=== PATIENT | female | born 1960 | race Caucasian/White ===

== ENCOUNTER 2020-06-04 08:50 | Observation (INO) | payer BC ==
[~2020-06-04] VITALS: Ht 162.5 cm; Wt 66.9 kg
[2020-06-04 09:02] VITALS: BP 162/99
[2020-06-04 09:22] LABS: BASO % 0.6 % (0.0-1.0); EOS # 0.1 10*3/uL (0.0-0.4); EOS % 2.1 % (1.0-4.0); HEMATOCRIT 40.5 % (37.0-47.0); LYMPH # 1.3 10*3/uL (1.3-4.4); LYMPH % 19.9 % (27.0-41.0); MEAN CELL VOLUME 93.8 fl (81.0-99.0); MEAN CORPUSCULAR HGB 30.1 pg (27.0-31.0); MEAN CORPUSCULAR HGB CONC 32.1 g/dl (33.0-37.0); MONO # 0.5 10*3/uL (0.1-1.0); MONO % 7.1 % (3.0-9.0); NEUT # 4.7 10*3/uL (2.3-7.9); NEUT % 70.2 % (47.0-73.0); PLATELET COUNT AUTOMATED 275 10*3/uL (130-400); RED BLOOD COUNT 4.32 10*6/uL (4.10-5.10); RED CELL DISTRI WIDTH 12.6 % (0-14.5); WHITE BLOOD COUNT 6.7 10*3/uL (4.8-10.8)
[2020-06-04 09:36] LABS: ACT PARTIAL THROMBO TIME 28.8 SECONDS (20.0-32.1)
[2020-06-04 09:39] LABS: ALBUMIN 3.9 gm/dl (3.1-4.5); ALKALINE PHOSPHATASE 124 U/L (45-117); BUN 11 mg/dl (7-24); CHLORIDE 107 mmol/L (98-107); CREATININE 0.57 mg/dL (0.55-1.02); LIPASE 189 U/L (73-393); POTASSIUM 3.5 mmol/L (3.5-5.1); SGOT/AST 23 IU/L (3-35); SGPT/ALT 38 U/L (12-78); SODIUM 140 mmol/L (136-145); TOTAL PROTEIN 7.6 gm/dL (6.4-8.2)
[2020-06-04 09:41] LABS: TROPONIN I < 0.015 ng/ml (<0.045)
[2020-06-04 11:30] VITALS: BP 154/87
[2020-06-04 15:16] VITALS: BP 154/91
[2020-06-04 17:30] VITALS: BP 157/93
[2020-06-04] MEDS ORDERED: AUGMENTIN 875-875 MG PO (18:12)
[2020-06-04] MEDS ORDERED: IMITREX100 MG PO (18:14)
[2020-06-04] MEDS ORDERED: DAILY VITAMIN1 EAC3 PO (18:14)
[2020-06-04] MEDS ORDERED: VITAMIN D350 MCG PO (18:15)
[2020-06-04 20:00] VITALS: BP 131/96
[2020-06-05] VITALS: BP 142/86
[2020-06-05 06:10] LABS: BASO % 0.7 % (0.0-1.0); EOS # 0.3 10*3/uL (0.0-0.4); EOS % 4.8 % (1.0-4.0); HEMATOCRIT 40.6 % (37.0-47.0); LYMPH # 1.9 10*3/uL (1.3-4.4); LYMPH % 34.7 % (27.0-41.0); MEAN CELL VOLUME 92.7 fl (81.0-99.0); MEAN CORPUSCULAR HGB 29.7 pg (27.0-31.0); MEAN PLATELET VOLUME 10.3 fl (9.6-12.3); MONO # 0.4 10*3/uL (0.1-1.0); MONO % 7.7 % (3.0-9.0); NEUT # 2.8 10*3/uL (2.3-7.9); NEUT % 51.9 % (47.0-73.0); PLATELET COUNT AUTOMATED 272 10*3/uL (130-400); RED BLOOD COUNT 4.38 10*6/uL (4.10-5.10); RED CELL DISTRI WIDTH 12.5 % (0-14.5); WHITE BLOOD COUNT 5.5 10*3/uL (4.8-10.8)
[2020-06-05 06:37] LABS: ALBUMIN 3.6 gm/dl (3.1-4.5); BUN 8 mg/dl (7-24); CHLORIDE 108 mmol/L (98-107); CHOLESTEROL 208 mg/dL (<200); CREATININE 0.55 mg/dL (0.55-1.02); POTASSIUM 3.9 mmol/L (3.5-5.1); SGOT/AST 19 IU/L (3-35); SGPT/ALT 33 U/L (12-78); SODIUM 140 mmol/L (136-145); TOTAL PROTEIN 7.1 gm/dL (6.4-8.2); TRIGLYCERIDES 73 mg/dl (<150); VLDL CHOLESTEROL 15 mg/dL (6-40)
[2020-06-05 06:43] LABS: ALKALINE PHOSPHATASE 121 U/L (45-117); HDL CHOLESTEROL 81 mg/dl (40-60); LDL CHOLESTEROL 112 mg/dL (9-159)
[2020-06-05 09:00] VITALS: BP 154/84
[2020-06-05 12:56] VITALS: BP 144/81
== END 2020-06-05 15:36 | disposition home or self-care (01) ==
LOC: ED 08:50 → EDHOLD 12:07 → 4E 15:43
PROVIDERS: Emergency Medicine; Registered Nurse; ADMIT Family Medicine; ATTEND Family Medicine
DX: R07.89 Other chest pain (principal); R94.31 Abnormal electrocardiogram [ECG] [EKG]; G43.909 Migraine, unspecified, not intractable, without status migrainosus; R74.8 Abnormal levels of other serum enzymes; J32.9 Chronic sinusitis, unspecified; Z98.890 Other specified postprocedural states

== ENCOUNTER → 2020-08-12 | Outpatient (CLI) | payer BC ==
[~2020-08-12] MED LIST: AUGMENTIN 875-875 MG PO; DAILY VITAMIN1 EAC3 PO; IMITREX100 MG PO; VITAMIN D350 MCG PO
== END | disposition home or self-care (01) ==
LOC: RAD 08:26
PROVIDERS: ATTEND Chiropractor
DX: M47.817 Spondylosis without myelopathy or radiculopathy, lumbosacral region (principal); M47.816 Spondylosis without myelopathy or radiculopathy, lumbar region

== ENCOUNTER → 2020-10-02 | Outpatient (CLI) | payer BC | END | disposition home or self-care (01) | LOC: RAD 07:43 | PROVIDERS: ATTEND Nurse Practitioner Primary Care | DX: M16.11 Unilateral primary osteoarthritis, right hip (principal); M23.51 Chronic instability of knee, right knee; M25.851 Other specified joint disorders, right hip ==

== ENCOUNTER → 2021-07-07 | Outpatient (CLI) | payer OTHER | END | disposition home or self-care (01) | LOC: RAD 15:39 | PROVIDERS: ATTEND Nurse Practitioner Primary Care | DX: J40 Bronchitis, not specified as acute or chronic (principal); I77.819 Aortic ectasia, unspecified site; R53.83 Other fatigue ==

== ENCOUNTER → 2021-07-31 | Outpatient (CLI) | payer OTHER | END | disposition home or self-care (01) | LOC: US 01:32 | PROVIDERS: ATTEND Nurse Practitioner Primary Care | DX: I77.819 Aortic ectasia, unspecified site (principal) ==